=== PATIENT | male | born 1990 | race African-American/Black ===

== ENCOUNTER 2017-11-26 16:39 | Emergency (ER) | payer OTHER ==
[~2017-11-26] VITALS: Ht 167.6 cm; Wt 57.0 kg
[2017-11-26] MEDS ORDERED: VALIUM5 MG PO (17:36)
[2017-11-26] MEDS ORDERED: MOTRIN600 MG PO (17:36)
[2017-11-26 19:22] VITALS: BP 116/82
== END 2017-11-26 19:23 | disposition home or self-care (01) ==
LOC: EME 16:39
DX: S39.012A Strain of muscle, fascia and tendon of lower back, initial encounter (principal); V47.5XXA Car driver injured in collision with fixed or stationary object in traffic accident, initial encounter; Y92.410 Unspecified street and highway as the place of occurrence of the external cause
CPT/HCPCS: 99281; 99284